=== PATIENT | male | born 1950 | race Caucasian/White ===

== ENCOUNTER 2016-10-04 05:59 | Day surgery (SDC) | payer MEDICARE, OTHER ==
[2016-09-28 11:55] LABS: HEMATOCRIT 45.2 % (40.0-51.0); HEMOGLOBIN 16.2 g/dL (13.6-17.8)
[2016-09-28 11:59] LABS: PARTIAL THROMBO TIME 26.6 SEC (22.5-37.2)
[2016-09-28 12:04] LABS: BUN (BLOOD UREA NITROGEN) 19 MG/DL (6-23); CALCIUM, SERUM 8.9 MG/DL (8.5-10.4); CHLORIDE, SERUM 106 MMOL/L (96-112); CO2 (CARBON DIOXIDE) 28 MMOL/L (24-34); CREATININE 0.78 MG/DL (0.70-1.30); GFR AFRICAN AMERICAN 110 ML/MIN (>=60); GFR NON AFRICAN AMERICAN 95 ML/MIN (>=60); GLUCOSE, SERUM 98 MG/DL (60-99); POTASSIUM, SERUM 4.1 MMOL/L (3.5-5.3); SODIUM, SERUM 142 MMOL/L (135-148)
--- NOTE | ~2016-10-04 | OP ---
Record Of Operation [facility] [address] [place]. [address] NAME: ROMINA BUTT : 52 [place]US : [place] [facility] [place] [id number] AGE: 66 ADM/REG DATE : 10/04/16 MR#: [id number] REPORT SERV DATE: 10/04/16 DICTATED BY: EVER BELLE DATE: 10/04/16 REPORT STATUS : Draft TRANSCRIBED BY: MODL DATE: 10/04/16 DATE OF PROCEDURE: 10/04/2016 PREOPERATIVE DIAGNOSIS: Left tail of parotid Warthin's tumor. POSTOPERATIVE DIAGNOSIS: Left tail of parotid Warthin's tumor. PROCEDURE PERFORMED: 1. Left superficial parotidectomy. 2. Left sternocleidomastoid muscular rotation flap. SURGEON: Ever Belle M.D. MMI TEACHER: Lucien Williamson M.D. ANESTHESIA: General. COMPLICATIONS: None. CONDITION: Stable to recovery. INDICATIONS: This is a 66-year-old male with a left superficial parotid tumor consistent with Warthin's tumor. Risks, benefits, and alternatives to excision were explained and he agreed. PROCEDURE IN DETAIL: The patient was identified in preoperative holding, taken back to the operating room, placed supine on the operating room table. General anesthesia was established. The facial nerve monitor was connected and assembled. The left orbicularis oculi and orbicularis phi muscles were monitored. Electrodes were placed and connected to the monitor and a tap test was positive. A Zechariah's incision was then marked with a surgical ink pen and infiltrated subcutaneously with 3 mL of 1% lidocaine with 1:100,000 epinephrine. He was prepped and draped. A time-out was called, and the patient and procedure were confirmed. Using 2.5x loupe magnification and headlight illumination, the operation commenced. An incision was made through the skin and subcutaneous tissues elevating a subplatysmal flap and subcutaneous flap over the parotid gland. The digastric muscle was initially identified. I elevated the tail of parotid off the sternomastoid muscle. The greater auricular nerve was coursing through the tumor and so this was sacrificed. This allowed better exposure of the digastric muscle and the stylomastoid foramen. The facial nerve was identified exiting the stylomastoid foramen and confirmed with the nerve stimulating probe. The lower division of the nerve was dissected with a Villegas dissector and Harmonic scalpel and the tumor was excised without injury to the nerve or rupture of capsule. The specimen was sent to pathology and frozen section confirmed Warthin's tumor. A superiorly based sternocleidomastoid muscle flap was then fashioned using the medial third of the upper sternocleidomastoid muscle. This was transected and dissected with care to Record Of Operation [address] [id number] NAME: ROMINA BUTT : 52 [place]US : [place] [facility] [place] [id number] AGE: 66 ADM/REG DATE : 10/04/16 MR#: [id number] REPORT SERV DATE: 10/04/16 DICTATED BY: EVER BELLE DATE: 10/04/16 REPORT STATUS : Draft TRANSCRIBED BY: MODL DATE: 10/04/16 avoid the spinal accessory nerve, which was deep and inferior to the dissection. The medial one-third of the upper attachment of the sternocleidomastoid muscle was rotated into the parotidectomy defect and 3-0 Vicryl was used to suture this to the free edge of the upper portion of the lateral lobe of the parotid gland. Four sutures were used to affix the muscle to the gland, it filled the space nicely and covered the exposed parotid affectively. A 7-0 round perforated drain was placed and secured with a 3-0 Vicryl suture. The wound was closed in layers using 3-0 Vicryl and a 5-0 running Monocryl followed by Steri-Strips. At the end of the case, the facial nerve stimulator was used to confirm good facial function and there was a positive response in the upper and lower divisions with probe interrogation. The patient was awakened and taken to recovery in stable condition. PH/MODL Ever Belle M.D. / [id number] CC: Kofi Sommers M.D.
[~2016-10-04 05:59] MED LIST: ALLEGRA180 PO; ASA5GR PO; AUG875 PO; FISH-EPA1000 MG PO; P20 PO; STERAPRED5 MG; ZOCOR20 PO
== END 2016-10-04 12:53 | disposition home or self-care (01) ==
LOC: SDC 05:59
PROVIDERS: Specialist
PROC: 00BM0ZZ Excision of Facial Nerve, Open Approach (ICD-10-PCS; 2016-10-04)
PROC: 0KX30ZZ Transfer Left Neck Muscle, Open Approach (ICD-10-PCS; 2016-10-04)
PROC: 0CB Mouth and Throat, Excision (ICD-10-PCS; principal; 2016-10-04 07:15)
DX: D11.0 Benign neoplasm of parotid gland (principal); I25.10 Atherosclerotic heart disease of native coronary artery without angina pectoris; G47.33 Obstructive sleep apnea (adult) (pediatric); J45.909 Unspecified asthma, uncomplicated; J32.9 Chronic sinusitis, unspecified; E78.00 Pure hypercholesterolemia, unspecified; Z99.89 Dependence on other enabling machines and devices; Z88.2 Allergy status to sulfonamides; Z79.82 Long term (current) use of aspirin; Z79.899 Other long term (current) drug therapy; Z98.1 Arthrodesis status; Z98.890 Other specified postprocedural states
CPT/HCPCS: 80048; 85014; 85018; 85730; 88307; 88331; 93005; J0690; J2250; J2405; J2710; J3010